=== PATIENT | male | born 1985 | race African-American/Black ===

== ENCOUNTER 2016-12-14 17:48 | Emergency (ER) | payer SELFPAY ==
--- NOTE | 2016-12-14 18:18 | ER Document Report ---
ED Medical Screen (RME) - General Chief Complaint: Nausea/Vomiting Stated Complaint: NAUSEA,VOMITING Notes: Referred here for medical clearance and experiencing some nausea and vomiting today Physical Exam - Vital signs Vitals: Temp Pulse Resp BP Pulse Ox 98.2 F 88 20 176/99 H 100 12/14/16 18:15 12/14/16 18:15 12/14/16 18:15 12/14/16 18:15 12/14/16 18:15 Course - Vital Signs Vital signs: Temp Pulse Resp BP Pulse Ox 98.2 F 88 20 176/99 H 100 12/14/16 18:15 12/14/16 18:15 12/14/16 18:15 12/14/16 18:15 12/14/16 18:15
[2016-12-14 18:47] LABS: ABSOLUTE LYMPHOCYTES (AUTO) 1.5 10^3/uL (0.5-4.7); ABSOLUTE MONOCYTES (AUTO) 0.6 10^3/uL (0.1-1.4); BASOPHILS % (AUTO) 0.3 % (0-2); EOSINOPHILS % (AUTO) 0.2 % (0-6); HEMATOCRIT 44.9 % (37.9-51.0); HEMOGLOBIN 14.4 g/dL (13.5-17.0); HGB HCT DIFFERENCE -1.7; LYMPHOCYTES % (AUTO) 20.7 % (13-45); MEAN CORPUSCULAR HEMOGLOBIN 27.3 pg (27.0-33.4); MEAN CORPUSCULAR HGB CONC 32.2 g/dL (32.0-36.0); MEAN CORPUSCULAR VOLUME 85 fl (80-97); RED CELL DISTRIBUTION WIDTH 13.9 % (11.5-14.0); SEGMENTED NEUTROPHILS % (AUTO) 70.8 % (42-78)
[2016-12-14 18:53] LABS: APPEARANCE,URINE CLEAR; BILIRUBIN,URINE NEGATIVE (NEGATIVE); GLUCOSE, URINE NEGATIVE (NEGATIVE); KETONES,URINE NEGATIVE (NEGATIVE); LEUKOCYTE ESTERASE,URINE NEGATIVE (NEGATIVE); NITRITE,URINE NEGATIVE (NEGATIVE); PROTEIN,URINE 30 mg/dL (NEGATIVE); UROBILINOGEN,URINE NEGATIVE mg/dL (<2.0)
[2016-12-14 19:03] LABS: ALANINE AMINOTRANSFERASE 54 U/L (21-72); ALKALINE PHOSPHATASE 64 U/L (38-126); ANION GAP 14 (5-19); ASPARTATE AMINO TRANSFERASE 41 U/L (17-59); BILIRUBIN,TOTAL 0.5 mg/dL (0.2-1.3); BLOOD UREA NITROGEN 18 mg/dL (7-20); CALCIUM 9.8 mg/dL (8.4-10.2); CARBON DIOXIDE 28 mmol/L (22-30); CHLORIDE 98 mmol/L (98-107); CREATININE RESULT 0.83 mg/dL (0.52-1.25); GLUCOSE 91 mg/dL (75-110); POTASSIUM 3.9 mmol/L (3.6-5.0); SODIUM 139.9 mmol/L (137-145); TOTAL PROTEIN 7.8 g/dL (6.3-8.2)
[2016-12-14 19:04] LABS: ALCOHOL < 10 mg/dL (NONE DETECTED)
[2016-12-14 19:13] LABS: URINE BARBITURATES SCREEN NEGATIVE; URINE METHADONE SCREEN NEGATIVE; URINE PHENCYCLIDINE SCREEN NEGATIVE
[2016-12-14] MEDS ORDERED: FAMOTIDINE 20 MG TABLET PO ONE (19:21)
[2016-12-14] MEDS ORDERED: ONDANSETRON 4 MG TAB.RAPDIS PO ONE (19:21)
--- NOTE | 2016-12-14 19:23 | ER Document Report ---
ED GI/ - General Chief Complaint: Medical Clearance Stated Complaint: NAUSEA,VOMITING Time seen by provider: 19:22 Notes: Patient is a 31-year-old male that comes emergency department with chief complaint of nausea and vomiting, he states he has vomited almost 10 times a day , he denies blood in vomit, he denies any abnormal stools, had one normal bowel movement earlier today. He denies any fever or chills. Patient states he checked into [facility] because he wants to get past having depression and alcohol dependence (states he has struggled with this since his friend committed suicide). Patient states that he was referred over here for evaluation because of his vomiting symptoms, states he needs medical clearance. Patient admits that he was drinking large amount of beers last night and has drank regularly this week. Eyes any daily medications, surgeries, or any other past medical history. TRAVEL OUTSIDE OF THE [place] IN LAST 30 DAYS: No Past Medical History - General Information source: Patient - Social History Smoking Status: Never Smoker Frequency of alcohol use: Heavy Drug Abuse: None Lives with: Alone Family History: Reviewed & Not Pertinent Patient has suicidal ideation: No Patient has homicidal ideation: No - Medical History Medical History: Negative Renal/ Medical History: Denies: Hx Peritoneal Dialysis Surgical Hx: Negative - Immunizations Hx Diphtheria, Pertussis, Tetanus Vaccination: Yes Review of Systems - Review of Systems Constitutional: No symptoms reported EENT: No symptoms reported Cardiovascular: No symptoms reported Respiratory: No symptoms reported Gastrointestinal: See HPI Genitourinary: No symptoms reported Male Genitourinary: No symptoms reported Musculoskeletal: No symptoms reported Skin: No symptoms reported Hematologic/Lymphatic: No symptoms reported Neurological/Psychological: No symptoms reported Physical Exam - Vital signs Vitals: Temp Pulse Resp BP Pulse Ox 98.2 F 88 20 176/99 H 100 12/14/16 18:15 12/14/16 18:15 12/14/16 18:15 12/14/16 18:15 12/14/16 18:15 Interpretation: Normal - General General appearance: Appears well, Alert In distress: None - HEENT Head: Normocephalic, Atraumatic Eyes: Normal Pupils: PERRL - Respiratory Respiratory status: No respiratory distress Chest status: Nontender Breath sounds: Normal Chest palpation: Normal - Cardiovascular Rhythm: Regular Heart sounds: Normal auscultation Murmur: No - Abdominal Inspection: Normal Distension: No distension Bowel sounds: Normal Tenderness: Tender - Tenderness over the left upper quadrant and epigastric area which is mild, otherwise completely soft abdomen. - Back Back: Normal, Nontender - Extremities General upper extremity: Normal inspection, Nontender, Normal color, Normal ROM , Normal temperature General lower extremity: Normal inspection, Nontender, Normal color, Normal ROM , Normal temperature, Normal weight bearing. No: Ivelisse's sign - Neurological Neuro grossly intact: Yes Cognition: Normal Orientation: AAOx4 Yuki Coma Scale Eye Opening: Spontaneous Marble Coma Scale Verbal: Oriented Marble Coma Scale Motor: Obeys Commands Yuki Coma Scale Total: 15 Speech: Normal Motor strength normal: LUE, RUE, LLE, RLE Sensory: Normal - Psychological Associated symptoms: Normal affect, Normal mood - Patient very polite, conversational, answers questions without hesitation, does not appear to be responding to any internal stimuli, calm. - Skin Skin Temperature: Warm Skin Moisture: Dry Skin Color: Normal Course - Re-evaluation Re-evalutation: Mild epigastric and left upper quadrant pain on examination, lipase is normal, chemistries unremarkable, CBC unremarkable. Suspect gastritis secondary to alcohol abuse. Patient given Zofran and Pepcid. Drug screen, urinalysis, additional labs an EKG performed to complete medical clearance. Patient will be discharged on Pepcid and Zofran, patient going back to [facility]. Blood pressure cycled, still 170s over 80s, patient states he feels slightly anxious but he admits that he has been checking his blood pressure regularly and the systolic is always at least 150. Strong family history of hypertension. After discussion, patient will be started on amlodipine, patient states he will follow-up with primary care after Eugenio Fuchs, patient is take this daily and follow-up closely, no acute abnormalities, no headache or chest pain, patient has not vomited during his entire stay in the emergency department. Still stable for discharge. - Vital Signs Vital signs: Temp Pulse Resp BP Pulse Ox 98.5 F 95 16 174/93 H 100 12/14/16 21:14 12/14/16 21:14 12/14/16 21:14 12/14/16 21:14 12/14/16 21:14 - Laboratory Result Diagrams: 12/14/16 18:25 12/14/16 18:25 Laboratory results interpreted by me: 12/14/16 12/14/16 18:25 18:25 Urine Protein 30 H Salicylates < 1.0 L Acetaminophen < 10 L Discharge - Discharge Clinical Impression: Alcohol abuse, Essential hypertension Vomiting Qualifiers: Vomiting type: unspecified Vomiting Intractability: non-intractable Nausea presence: with nausea Qualified Code(s): R11.2 - Nausea with vomiting, unspecified Condition: Stable Disposition: HOME, SELF-CARE Additional Instructions: Your examination, symptoms, and workup are consistent with gastritis probably secondary to the alcohol. Take Pepcid as directed, take Zofran if needed for nausea. Return to [facility] to complete your management. Your blood pressure elevations should be treated, take amlodipine 5 mg as directed, follow up with primary care for additional management of pressures. Return to the emergency department for any concerning or worsening symptoms. Prescriptions: Amlodipine Besylate 5 mg PO DAILY #30 tab Famotidine [Pepcid 20 mg Tablet] 20 mg PO DAILY #14 tablet Ondansetron [Zofran Odt 4 mg Tablet] 1 - 2 tab PO Q4H PRN #15 tab.rapdis PRN Reason: For Nausea/Vomiting Referrals: [facility] [Provider Group] - 12/29/16 TELMA ALBRIGHT MD [ACTIVE STAFF] - 12/29/16
[2016-12-14 21:18] VITALS: BP 174/93
--- NOTE | 2016-12-15 08:23 | EKG REPORT ---
SEVERITY:- NORMAL ECG - SINUS RHYTHM : Confirmed by: Noman Mosqueda MD 15-Dec-2016 08:22:42
== END 2016-12-14 21:18 | disposition home or self-care (01) ==
LOC: ER 17:48
DX: R11.2 Nausea with vomiting, unspecified (principal); I10 Essential (primary) hypertension; F10.20 Alcohol dependence, uncomplicated; F32.9 Major depressive disorder, single episode, unspecified; R10.13 Epigastric pain; R10.12 Left upper quadrant pain; F41.9 Anxiety disorder, unspecified; Z82.49 Family history of ischemic heart disease and other diseases of the circulatory system
CPT/HCPCS: 93005; 99283; 36415; 80307 ×4; 83690; 85025; 80053; 81001; 93010; S0119

== ENCOUNTER 2019-01-06 12:31 | Emergency (ER) | payer SELFPAY ==
[2019-01-06] MEDS ORDERED: ACETAMINOPHEN 325 MG TABLET PO ONE (14:45)
[2019-01-06] MEDS ORDERED: PREDNISONE 20 MG TABLET PO ONE (14:45)
[2019-01-06] MEDS ORDERED: IPRATROPIUM/ALBUTEROL 0.5-2.5 MG/3 ML AMPUL NEB ONE (14:45)
--- NOTE | 2019-01-06 14:46 | ER Document Report ---
HPI - HPI Time Seen by Provider: 01/06/19 14:37 Onset/Duration: Gradual Quality of pain: Achy Pain Level: 3 Context: Patient presents with a 2-day history of body aches, chills and occasionally productive cough. Patient without any fever. Associated Symptoms: Body/muscle aches, Chills, Productive cough, Rhinnorhea. denies: Earache, Fever Exacerbated by: Denies Relieved by: Denies Similar symptoms previously: No Recently seen / treated by doctor: No - ROS ROS below otherwise negative: Yes Systems Reviewed and Negative: Yes All other systems reviewed and negative - CONSTITUTIONAL Constitutional: REPORTS: Chills. DENIES: Fever - EENT EENT: REPORTS: Nasal Drainage-Clear, Congestion - RESPIRATORY Respiratory: REPORTS: Coughing - MUSCULOSKELETAL Musculoskeletal: DENIES: Back Pain - DERM Skin Color: Normal Skin Problems: None Past Medical History - General Information source: Patient - Social History Smoking Status: Current Every Day Smoker Smoking Education Provided: Yes Frequency of alcohol use: None Drug Abuse: None Occupation: seafood processor Family History: Reviewed & Not Pertinent - Past Medical History Cardiac Medical History: Reports: Hx Hypertension Renal/ Medical History: Denies: Hx Peritoneal Dialysis Surgical Hx: Negative - Immunizations Hx Diphtheria, Pertussis, Tetanus Vaccination: Yes Vertical Provider Document - CONSTITUTIONAL Agree With Documented VS: Yes Exam Limitations: No Limitations General Appearance: WD/WN, No Apparent Distress - INFECTION CONTROL TRAVEL OUTSIDE OF THE [place] IN LAST 30 DAYS: No - HEENT HEENT: Atraumatic, Normocephalic. negative: Pharyngeal Exudate, Pharyngeal Tenderness, Pharyngeal Erythema - NECK Neck: Normal Inspection, Supple. negative: Lymphadenopathy-Left, Lymphadenopathy-Right - RESPIRATORY Respiratory: No Respiratory Distress, Chest Non-Tender, Wheezing - CARDIOVASCULAR Cardiovascular: Regular Rate, Regular Rhythm, No Murmur - GI/ABDOMEN Gastrointestinal: Abdomen Soft, Abdomen Non-Tender - BACK Back: Normal Inspection - MUSCULOSKELETAL/EXTREMETIES Musculoskeletal/Extremeties: YOLANDE ALMAGUER - NEURO Level of Consciousness: Awake, Alert, Appropriate Motor/Sensory: No Motor Deficit - DERM Integumentary: Warm, Dry, No Rash Course - Re-evaluation Re-evalutation: 01/06/19 16:46 Patient's respirations even unlabored, patient nontoxic in appearance. Patient encouraged to follow-up with primary care provider for recheck. - Vital Signs Vital signs: Temp Pulse Resp BP Pulse Ox 99.0 F 92 18 134/73 H 98 01/06/19 12:56 01/06/19 12:56 01/06/19 12:56 01/06/19 12:56 01/06/19 12:56 - Diagnostic Test Radiology reviewed: Reports reviewed Discharge - Discharge Clinical Impression: Upper respiratory infection Qualifiers: URI type: unspecified URI Qualified Code(s): J06.9 - Acute upper respiratory infection, unspecified Condition: Stable Disposition: HOME, SELF-CARE Instructions: Acetaminophen, Inhaled Bronchodilators ([facility]), Steroid Medication, Upper Respiratory Illness ([facility]) Additional Instructions: Return immediately for any new or worsening symptoms Followup with your primary care provider, call tomorrow to make a followup appointment You may take Coricidin HBP [id number] to help with your symptoms Prescriptions: Albuterol Sulfate [Proair Hfa Inhalation Aerosol 8.5 gm Mdi] 2 puff IH Q4 PRN #1 mdi PRN Reason: Inhaler,Assist Device,Accesory [Optichamber] 1 each MC Q4 PRN #1 each PRN Reason: Prednisone [Deltasone 20 mg Tablet] 3 tab PO DAILY 4 Days tablet Forms: Smoking Cessation Education, Return to Work Referrals: [facility] [Provider Group] - Follow up as needed
[2019-01-06] MEDS: ALBUTEROL SULFATE 0.083% NEB 2.5 MG/3 ML AMPUL NEB SCH ×2 (15:04→16:06)
--- NOTE | 2019-01-06 16:12 | RADIOLOGY REPORT (SQ) ---
EXAM DESCRIPTION: CHEST 2 VIEWS COMPLETED DATE/TIME: 01/06/2019 4:05 pm REASON FOR STUDY: cough COMPARISON: None. EXAM PARAMETERS: NUMBER OF VIEWS: two views TECHNIQUE: Digital Frontal and Lateral radiographic views of the chest acquired. RADIATION DOSE: NA LIMITATIONS: none FINDINGS: LUNGS AND PLEURA: No opacities, masses or pneumothorax. No pleural effusion. MEDIASTINUM AND HILAR STRUCTURES: No masses or contour abnormalities. HEART AND VASCULAR STRUCTURES: Heart normal size. No evidence for failure. BONES: No acute findings. HARDWARE: None in the chest. OTHER: No other significant finding. IMPRESSION: NO ACUTE RADIOGRAPHIC FINDING IN THE CHEST. TECHNICAL DOCUMENTATION: JOB ID: [id number] [employer]- All Rights Reserved Reading location - IP/workstation name: [email or web address]
[2019-01-06 16:48] VITALS: BP 120/80
== END 2019-01-06 16:40 | disposition home or self-care (01) ==
LOC: ER 12:31
DX: J06.9 Acute upper respiratory infection, unspecified (principal); M79.10 Myalgia, unspecified site; R68.83 Chills (without fever); F17.200 Nicotine dependence, unspecified, uncomplicated; I10 Essential (primary) hypertension
CPT/HCPCS: 94640 ×2; 99283; 71046; J7512; J7620